=== PATIENT | female | born 1985 | race Caucasian/White ===

== ENCOUNTER 2021-01-07 16:58 | Emergency (ER) | payer SELFPAY ==
[2021-01-07 18:20] LABS: ACETAMINOPHEN 0 ug/mL (10-30)
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
== END 2021-01-07 18:45 ==
LOC: JD.ED 16:58
DX: F10.120 Alcohol abuse with intoxication, uncomplicated (principal); S00.31XA Abrasion of nose, initial encounter; M79.81 Nontraumatic hematoma of soft tissue; Y90.0 Blood alcohol level of less than 20 mg/100 ml; X15.8XXA Contact with other hot household appliances, initial encounter
CPT/HCPCS: 36415; 80053; 80143; 80179; 80306; 80307; 81001; 83735; 84443; 85025; 93005; 93010; 99283; 99284-25